=== PATIENT | male | born 1985 | race Caucasian/White ===

== ENCOUNTER 2017-11-11 08:31 | Outpatient (CLI) | payer MEDICAID ==
[~2017-11-11 08:31] MED LIST: CEPH-571 PO; HYDR-569 PO
== END 2017-11-11 23:59 | disposition home or self-care (01) ==
LOC: RAD 08:31
PROVIDERS: ATTEND Specialist
DX: R56.9 Unspecified convulsions (principal); F17.200 Nicotine dependence, unspecified, uncomplicated; Z88.8 Allergy status to other drugs, medicaments and biological substances
CPT/HCPCS: 95816

== ENCOUNTER 2018-05-28 06:56 | Day surgery (SDC) | payer MEDICAID ==
[2018-05-25 14:39] LABS: ALBUMIN 3.5 G/DL (3.4-5.0); ALKALINE PHOSPHATASE 83 IU/L (46-116); BLOOD UREA NITROGEN 20 MG/DL (7-18); BUN/CREATININE RATIO 20.6 (5.4-32.0); CALCIUM 8.5 MG/DL (8.5-10.1); CHLORIDE 107 MMOL/L (99-107); CREATININE 0.97 MG/DL (0.60-1.10); PRE OP ALT 48 U/L (30-65); PRE OP ANION GAP 8 (8-16); PRE OP AST 21 U/L (10-37); PRE OP BILIRUB, TOTAL 0.2 MG/DL (0.0-1.0); PRE OP GLUCOSE 113 MG/DL (70-104); PRE OP POTASSIUM 4.4 MMOL/L (3.4-5.1); PRE OP SODIUM 142 MMOL/L (135-145); TOTAL CARBON DIOXIDE 26.7 MMOL/L (24-32); eGFR 89 ML/MIN
[2018-05-25 14:47] LABS: BASOPHILS % (AUTO) 0.2 % (0-1); EOSINOPHILS # (AUTO) 0.2 X10'3 (0-0.9); EOSINOPHILS % (AUTO) 2.5 % (0-6); LYMPHOCYTES # (AUTO) 3.5 X10'3 (1.1-4.8); LYMPHOCYTES % (AUTO) 36.9 % (21-51); MEAN CORPUSCULAR HEMOGLOBIN 27.3 PG (27.0-31.0); MEAN CORPUSCULAR HGB CONC 32.9 g/dL (33.0-36.5); MEAN PLATELET VOLUME 7.9 FL (7.4-10.4); MONOCYTES # (AUTO) 0.9 X10'3 (0-0.9); MONOCYTES % (AUTO) 9.2 % (2-12); NEUTROPHILS # (AUTO) 4.9 X10'3 (1.8-7.7); NEUTROPHILS % (AUTO) 51.2 % (42-75); PRE OP HEMATOCRIT 46.7 % (42.0-52.0); PRE OP HEMOGLOBIN 15.4 g/dL (14.0-17.9); PRE OP PLATELET COUNT 246 X10'3 (140-440); RED BLOOD COUNT 5.63 X10'6 (4.70-6.10)
[~2018-05-28] VITALS: Ht 177.8 cm; Wt 101.2 kg
[~2018-05-28 06:56] MED LIST changes: -CEPH-571 PO; -HYDR-569 PO; +LEVE10002 PO; +cefazolin/dext.iso 2gm/100 ML IV ONE; +famotidine 20mg tablet PO ONE; +vancomycin inj 1,500 MG in normal saline 300ml IV soln IV ONE
[2018-05-28 07:20] VITALS: BP 115/87
[2018-05-28] MEDS ORDERED: LIDOcaine 1% (10mg/ml) 2ml vial ONE (07:26)
[2018-05-28] MEDS ORDERED: BUPIVAcaine/PF 2.5mg/ml (0.25%) 10ml vial ONE ×2 (09:02→10:03)
[2018-05-28] MEDS ORDERED: methylPREDNISolone sod succ 125mg/2ml vial ONE (09:02)
[2018-05-28] MEDS ORDERED: LIDOcaine 1% 30ml preserv. free vial ONE (09:11)
[2018-05-28] MEDS ORDERED: ketorolac trometh. 30mg/ml inj. ONE (09:15)
[2018-05-28] MEDS ORDERED: 0.9 % SODIUM CHLORIDE 10 ML VIAL ONE (09:15)
[2018-05-28] MEDS ORDERED: MIDAZolam 5mg/5ml vial ONE (09:19)
[2018-05-28] MEDS ORDERED: fentaNYL/PF 50MCG/1 ML 2ML syringe ONE (09:19)
[2018-05-28] MEDS ORDERED: propofol inj 20 ML IV ONE (10:16)
[2018-05-28] MEDS ORDERED: LIDOcaine 1%/PF 5ML 10 MG/ML VIAL ONE (10:16)
[2018-05-28 10:29] VITALS: BP 120/74
--- NOTE | 2018-05-28 10:29 | NUR ---
Received from OR via [facility] , accompanied by Anesthesiologist RELL and report given by Anesthesiolgist. PATIENT WITH NO IV IN PLACE. PULLED OUT IN OR. PATIENT DENIES PAIN. RIGHT UE IN SPLINT WITH JESUS BANDAGE. ABLE TO SLIGHTLY MOVE FINGERS HOWEVER CANNOT FEEL ANYTHING TO RIGHT HAND AND FINGERS. PATIENT VSS. FELY PASTRANA FOR COMFORT. Addendum: 05/28/18 at 1049 by Richard Lawson RN, RN Amended: Links added.
[2018-05-28 10:39] VITALS: BP 134/78
[2018-05-28 10:49] VITALS: BP 123/68
[2018-05-28 10:59] VITALS: BP 124/70
--- NOTE | 2018-05-28 11:09 | NUR ---
ALL DC CRITERIA HAS BEEN MET.. ALL INSTRUCTIONS COVERED AND ALL QUESTIONS ANSWERED WITH SIGNIFICANT OTHER. RIGHT HAND DRESSINGS CDI. OUT VIA WHEELCHAIR TO PERSONAL VEHICLE WHERE PATIENT WAS SECURED IN AND DRIVEN HOME BY FAMILY. Addendum: 05/28/18 at 1126 by Richard Lawson RN, RN Amended: Links added.
== END 2018-05-28 11:09 | disposition home or self-care (01) ==
LOC: PAS 06:56
PROVIDERS: ATTEND Orthopaedic Surgery
DX: G56.01 Carpal tunnel syndrome, right upper limb (principal); G56.21 Lesion of ulnar nerve, right upper limb; S56.221A Laceration of other flexor muscle, fascia and tendon at forearm level, right arm, initial encounter; S66.124A Laceration of flexor muscle, fascia and tendon of right ring finger at wrist and hand level, initial encounter; S66.126A Laceration of flexor muscle, fascia and tendon of right little finger at wrist and hand level, initial encounter; G40.909 Epilepsy, unspecified, not intractable, without status epilepticus; X58.XXXA Exposure to other specified factors, initial encounter; F12.90 Cannabis use, unspecified, uncomplicated; Y93.89 Activity, other specified; Y92.89 Other specified places as the place of occurrence of the external cause; Y99.8 Other external cause status; Z88.8 Allergy status to other drugs, medicaments and biological substances
CPT/HCPCS: 26440; 36415; 64719; 64721; 80053; 82948; 85025; A6222; A6449; J0690; J1885; J2001; J2250; J2704; J2930; J3010; J3370; J3490; A6250; A7000

== ENCOUNTER 2019-02-02 22:32 | Emergency (ER) | payer MEDICAID ==
[~2019-02-02] VITALS: Ht 177.8 cm; Wt 84.1 kg
[~2019-02-02 22:32] MED LIST changes: -cefazolin/dext.iso 2gm/100 ML IV ONE; -famotidine 20mg tablet PO ONE; -vancomycin inj 1,500 MG in normal saline 300ml IV soln IV ONE
[2019-02-02 22:37] VITALS: BP 141/78
[2019-02-02] MEDS ORDERED: CEPH500C5 PO (23:57)
[2019-02-02] MEDS ORDERED: SULF1TAB49 PO (23:57)
[2019-02-03] MEDS ORDERED: vancomycin/NS 1 GM ADD-VANTAGE 250 ML IV ONE
== END 2019-02-03 02:03 | disposition home or self-care (01) ==
LOC: ER 22:33
DX: L03.012 Cellulitis of left finger (principal); F17.200 Nicotine dependence, unspecified, uncomplicated; F12.90 Cannabis use, unspecified, uncomplicated; F15.90 Other stimulant use, unspecified, uncomplicated; Z59.0 Homelessness; Z88.1 Allergy status to other antibiotic agents; Z56.0 Unemployment, unspecified
CPT/HCPCS: 96365; 99283; J3370

== ENCOUNTER 2023-04-25 16:22 | Emergency (ER) | payer MEDICAID ==
[~2023-04-25] VITALS: Ht 177.8 cm; Wt 100.1 kg
[2023-04-25 16:22] VITALS: TEMP 99.7
[~2023-04-25 16:22] MED LIST changes: +LACT1CAP26 PO
[2023-04-25] MEDS ORDERED: clindamycin-Cleocin 900mg/D5W 50 ML IV ONE (17:50)
[2023-04-25] MEDS ORDERED: SULF1TAB49 PO (18:16)
[2023-04-25 18:31] VITALS: BP 160/87; PULSE 87; RESP 16; O2SAT 97
== END 2023-04-25 18:32 | disposition home or self-care (01) ==
LOC: ER 16:23
DX: L02.414 Cutaneous abscess of left upper limb (principal); F15.90 Other stimulant use, unspecified, uncomplicated; F12.90 Cannabis use, unspecified, uncomplicated; Z56.0 Unemployment, unspecified; Z59.00 Homelessness unspecified; Z72.89 Other problems related to lifestyle; Z88.8 Allergy status to other drugs, medicaments and biological substances; Z79.899 Other long term (current) drug therapy
CPT/HCPCS: 10060; 96374; 99283; A6266; J3490; A6449